=== PATIENT | female | born 1990 | race Two or more races ===

== ENCOUNTER 2022-02-16 17:47 | Emergency (ER) | payer MEDICAID ==
[~2022-02-16] VITALS: Ht 157.5 cm; Wt 45.4 kg
[2022-02-16] MEDS ORDERED: GUAI5SYR4 GT (18:07)
--- NOTE | 2022-02-16 18:15 | NUR ---
Patient presents to the ER, C/O having productive cough for 2 days. No fever or chills. No difficulty breathing. No vomiting or diarrhea. No chest pain. Patient A/O X 4, seen by the MD, no medication ordered to be administered in the ER. Pateint cleared for discharge home, prescription sent to home pharmacy. Patient educated on medication administration, side effects and importance of compliance, verbalized understanding. Patient stable left ambulatory with her mother.
== END 2022-02-16 18:25 | disposition home or self-care (01) ==
LOC: ER 17:47
DX: J20.9 Acute bronchitis, unspecified (principal)
CPT/HCPCS: A4663